=== PATIENT | female | born 1975 | race Two or more races ===

== ENCOUNTER 2018-07-24 08:22 | Inpatient (IN) | payer OTHER ==
[~2018-07-24] VITALS: Ht 160 cm; Wt 62.6 kg
== END 2018-07-25 16:40 | disposition home or self-care (01) | DRG 770 ==
LOC: ER 08:22 → CIR.AMB 10:05 → SURG 21:34
PROVIDERS: Obstetrics & Gynecology
PROC: 10D17Z9 Manual Extraction of Products of Conception, Retained, Via Natural or Artificial Opening (ICD-10-PCS; principal; 2018-07-24 22:15)
DX: O02.1 Missed abortion (principal); O08.1 Delayed or excessive hemorrhage following ectopic and molar pregnancy; Z3A.10 10 weeks gestation of pregnancy

== ENCOUNTER 2022-06-29 08:46 | Outpatient (CLI) | payer OTHER | END 2022-06-29 08:50 | disposition home or self-care (01) | LOC: MAMO-SONO 08:46 | PROVIDERS: ATTEND Obstetrics & Gynecology | DX: Z12.31 Encounter for screening mammogram for malignant neoplasm of breast (principal); N60.19 Diffuse cystic mastopathy of unspecified breast; N92.6 Irregular menstruation, unspecified ==

== ENCOUNTER 2022-08-05 08:06 | Outpatient (CLI) | payer OTHER | END 2022-08-05 08:07 | disposition home or self-care (01) | LOC: LAB 08:06 | PROVIDERS: ATTEND Obstetrics & Gynecology | DX: E55.9 Vitamin D deficiency, unspecified (principal); N95.9 Unspecified menopausal and perimenopausal disorder; N30.00 Acute cystitis without hematuria; Z01.419 Encounter for gynecological examination (general) (routine) without abnormal findings ==

== ENCOUNTER 2022-10-20 17:25 | Emergency (ER) | payer OTHER ==
[~2022-10-20] VITALS: Ht 160 cm; Wt 59.0 kg
== END 2022-10-20 20:39 | disposition home or self-care (01) ==
LOC: ER 17:25
DX: J05.0 Acute obstructive laryngitis [croup] (principal); Z20.828 Contact with and (suspected) exposure to other viral communicable diseases

== ENCOUNTER 2023-02-10 08:11 | Outpatient (CLI) | payer OTHER | END 2023-02-10 08:15 | disposition home or self-care (01) | LOC: LAB 08:11 | DX: R53.81 Other malaise (principal); R53.83 Other fatigue; E11.9 Type 2 diabetes mellitus without complications; K59.00 Constipation, unspecified; E55.9 Vitamin D deficiency, unspecified; E78.2 Mixed hyperlipidemia; E03.8 Other specified hypothyroidism; D51.0 Vitamin B12 deficiency anemia due to intrinsic factor deficiency; Z12.11 Encounter for screening for malignant neoplasm of colon; I11.9 Hypertensive heart disease without heart failure; N39.0 Urinary tract infection, site not specified; N34.2 Other urethritis ==

== ENCOUNTER 2023-02-10 08:30 | Outpatient (CLI) | payer OTHER | END 2023-02-10 08:35 | disposition home or self-care (01) | LOC: RAD 08:30 | DX: M25.562 Pain in left knee (principal) ==

== ENCOUNTER → 2024-11-22 08:12 | Outpatient (CLI) | payer OTHER ==
[2024-11-22 09:03] LABS: URINE APPEARANCE Clear; URINE BILIRRUBIN Negative (NEGATIVE); URINE BLOOD Negative; URINE COLOR Yellow; URINE GLUCOSE Negative (NEGATIVE); URINE KETONE Negative (NEGATIVE); URINE LEUKOCYTE Negative; URINE NITRATE Negative; URINE PROTEIN Negative (NEGATIVE); URINE UROBILINOGEN 0.2 E.U./dl
[2024-11-22 09:07] LABS: URINE BACTERIA 784.3 uL (0.0-1933); URINE RBC 9.7 uL (0.0-20.8); URINE WBC 8.2 uL (0.0-23.2)
[2024-11-22 09:46] LABS: HEMATOCRIT 40.5 % (36.0-45.00); HEMOGLOBIN 13.6 g/dL (12.0-15.00); MEAN CELL VOLUME 94.8 fL (80.00-100.00); MEAN CORPUSCULAR HGB CONC 33.7 g/dl (32.0-36.0); PLATELET COUNT 220 K/uL (150-450); RED BLOOD COUNT 4.27 M/uL (4.00-6.00); RED CELL DISTRIBUTION WIDTH 13.6 % (11.5-14.5)
[2024-11-22 09:56] LABS: ERYTHROCYTE SEDIMENTATION RATE 10 mm/hr
[2024-11-22 10:45] LABS: ALBUMIN 3.9 gm/dL (3.4-5.0); BILIRUBIN TOTAL 0.53 mg/dL (0.3-1.2); CALCIUM 9.1 mg/dL (8.5-10.1); CHOL HDL RATIO 3.4 (0-5.0); CREATININE SERUM 0.72 mg/dL (0.55-1.02); FREE TRIODOTIRONINE 2.92 pg/ml (2.18-3.98); GFR 86.45; GLOBULINA 3.4 G/DL (2.4-3.5); POTASSIUM 4.16 mEq/L (3.5-5.1); T4 FREE 1.06 NG/ML (0.76-1.46); TOTAL PROTEIN 7.3 gm/dL (6.4-8.2); TSH 2.27 uIU/mL (0.358-3.74)
[2024-11-23 14:24] LABS: VITAMIN D3 25 HYDROXY 32.43 ng/ml (30-120)
== END | disposition home or self-care (01) ==
LOC: LAB 08:12
PROVIDERS: ATTEND General Practice
DX: R68.82 Decreased libido (principal); N94.5 Secondary dysmenorrhea; E11.9 Type 2 diabetes mellitus without complications; E55.9 Vitamin D deficiency, unspecified; D51.3 Other dietary vitamin B12 deficiency anemia; R73.09 Other abnormal glucose; M06.9 Rheumatoid arthritis, unspecified; R50.9 Fever, unspecified; E78.2 Mixed hyperlipidemia; E03.8 Other specified hypothyroidism; N39.0 Urinary tract infection, site not specified; Z12.11 Encounter for screening for malignant neoplasm of colon

== ENCOUNTER 2024-11-29 08:05 | Outpatient (CLI) | payer OTHER ==
[2024-11-29 09:18] LABS: ob POSITIVE (NEGATIVE)
== END 2024-11-29 08:06 | disposition home or self-care (01) ==
LOC: LAB 08:05
PROVIDERS: ATTEND General Practice
DX: R68.82 Decreased libido (principal); N94.5 Secondary dysmenorrhea; E11.9 Type 2 diabetes mellitus without complications; D51.3 Other dietary vitamin B12 deficiency anemia; R73.09 Other abnormal glucose; M06.9 Rheumatoid arthritis, unspecified; R50.9 Fever, unspecified; E78.2 Mixed hyperlipidemia; E03.8 Other specified hypothyroidism; N39.0 Urinary tract infection, site not specified; Z12.11 Encounter for screening for malignant neoplasm of colon